=== PATIENT | female | born 1965 | race Caucasian/White ===

== ENCOUNTER → 2017-06-19 | Outpatient (CLI) | payer OTHER ==
[~2017-06-19] MED LIST: AUGMENTIN 875875 MG PO; HYDROCODONE-AP1 EAC6 PO; HYDROCODONE-APA1 TA1 PO; IBUPROFEN 800800 M1 PO; NAPROSYN500 MG PO
[2017-06-19 15:03] LABS: ABSOLUTE BASOPHILS 0.1 thou/uL (0.0-0.2); ABSOLUTE EOSINOPHILS 0.2 thou/uL (0.0-0.7); ABSOLUTE LYMPHOCYTES 1.3 thou/uL (0.8-5.3); ABSOLUTE MONOCYTES 0.3 thou/uL (0.0-1.2); ABSOLUTE NEUTROPHILS 4.8 thou/uL (1.6-8.1); BASOPHILS 0.8 %; EOSINOPHILS 3.5 %; HEMATOCRIT 41.9 % (37.0-47.0); HEMOGLOBIN 13.9 gm/dL (12.0-15.0); LYMPHOCYTES 19.7 %; MCH 28.1 pg (26.0-34.0); MCHC 33.1 g/dL (28.0-37.0); MCV 84.9 fL (80.0-100.0); MONOCYTES 5.1 %; MPV 8.8 fl. (7.2-11.1); NUCLEATED RBCS 0 /100WBC; PLATELET COUNT* 300 thou/uL (150-400); POLYS 70.9 %; RBC 4.93 mil/uL (4.20-5.00); WBC 6.7 thou/uL (4.0-11.0)
[2017-06-19 15:13] LABS: ALBUMIN 4.1 g/dL (3.4-5.0); ALKALINE PHOSPHATASE 95 U/L (46-116); ANION GAP 7 mmol/L (7-16); BUN 14 mg/dL (7-18); CALCIUM 9.1 mg/dL (8.5-10.1); CHLORIDE 104 mmol/L (98-107); CHOLESTEROL 222 mg/dL (<200); CO2 31 mmol/L (21-32); CREATININE 0.7 mg/dL (0.6-1.3); GLUCOSE 97 mg/dL (70-99); HDL CHOLESTEROL 79 mg/dL (>40); LDL CHOLESTEROL 128 mg/dL (<100); POTASSIUM 3.6 mmol/L (3.5-5.1); SERUM ASSESSMENT Clear; SGOT 24 U/L (15-37); SGPT 33 U/L (30-65); SODIUM 142 mmol/L (136-145); TC:HDL 2.8 Ratio (Not establshd); TOTAL BILIRUBIN 0.4 mg/dL (<0.1-1.0); TOTAL PROTEIN 7.9 g/dL (6.4-8.2); TRIGLYCERIDE 77 mg/dL (<150); VLDL 15 mg/dL (<40)
[2017-06-20 02:08] LABS: GLYCOHEMOGLOBIN (HGB A1C) 5.2 % (4.8-5.6)
== END ==
LOC: M.RAD 14:34
DX: Z01.419 Encounter for gynecological examination (general) (routine) without abnormal findings (principal); M25.559 Pain in unspecified hip

== ENCOUNTER → 2018-07-09 | Outpatient (CLI) | payer OTHER | LOC: M.RAD 07-08 10:00 | DX: Z12.31 Encounter for screening mammogram for malignant neoplasm of breast (principal) ==

== ENCOUNTER 2018-09-04 11:41 | Emergency (ER) | payer OTHER ==
[~2018-09-04] VITALS: Ht 152.4 cm; Wt 81.7 kg
[2018-09-04 12:11] LABS: ABSOLUTE BASOPHILS 0.1 thou/uL (0.0-0.2); ABSOLUTE EOSINOPHILS 0.2 thou/uL (0.0-0.7); ABSOLUTE LYMPHOCYTES 1.4 thou/uL (0.8-5.3); ABSOLUTE MONOCYTES 0.4 thou/uL (0.0-1.2); ABSOLUTE NEUTROPHILS 5.8 thou/uL (1.6-8.1); EOSINOPHILS 2.4 %; HEMATOCRIT 40.9 % (37.0-47.0); HEMOGLOBIN 13.5 gm/dL (12.0-15.0); LYMPHOCYTES 17.2 %; MCH 26.9 pg (26.0-34.0); MCHC 32.9 g/dL (28.0-37.0); MCV 81.9 fL (80.0-100.0); MONOCYTES 5.7 %; MPV 8.6 fl. (7.2-11.1); NUCLEATED RBCS 0 /100WBC; PLATELET COUNT* 362 thou/uL (150-400); POLYS 73.7 %; RDW-CV 14.9 % (10.5-14.5); WBC 7.9 thou/uL (4.0-11.0)
[2018-09-04 12:24] LABS: ANION GAP 9 mmol/L (7-16); BUN 15 mg/dL (7-18); CALCIUM 9.2 mg/dL (8.5-10.1); CHLORIDE 105 mmol/L (98-107); CO2 29 mmol/L (21-32); GLUCOSE 127 mg/dL (70-99); POTASSIUM 3.9 mmol/L (3.5-5.1); SODIUM 143 mmol/L (136-145)
[2018-09-04 12:33] LABS: ALBUMIN 3.7 g/dL (3.4-5.0); ALKALINE PHOSPHATASE 86 U/L (46-116); SGOT 24 U/L (15-37); SGPT 33 U/L (30-65); TOTAL BILIRUBIN 0.3 mg/dL (<0.1-1.0); TOTAL PROTEIN 7.1 g/dL (6.4-8.2); TROPONIN-I LEVEL <0.06 ng/mL (<0.06)
[2018-09-04 15:29] VITALS: BP 126/69
--- NOTE | 2018-09-04 15:39 | EKG ---
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 : 1965 Requested By: Nayla Lawler Order Number: [id number] MD: Michele Moseley Measurements Intervals [place] Rate: 77 P: 39 SC: 133 QRS: -27 QRSD: 100 T: 45 QT: 370 QTc: 419 Interpretive Statements Sinus rhythm Borderline left axis deviation Baseline wander in lead(s) I,III,aVR,aVL,aVF,V1 Compared to ECG 12/19/2016 00:30:20 Sinus tachycardia no longer present incomplete Right bundle-branch block no longer present Electronically Signed On 09-04-2018 15:39:40 CDT by Michele Moseley [email or web address] <ELECTRONICALLY SIGNED> By: Michele Moseley MD, [facility] 09/04/18 1539 1222 1222 Michele Moseley MD, [facility] /EPI
== END 2018-09-04 15:30 | disposition home or self-care (01) ==
LOC: M.ERS 11:41
PROVIDERS: Nurse Practitioner Family
DX: R20.2 Paresthesia of skin (principal); R06.00 Dyspnea, unspecified

== ENCOUNTER → 2019-09-10 | Outpatient (CLI) | payer OTHER ==
[2019-09-10 14:43] LABS: ABSOLUTE BASOPHILS 0.1 thou/uL (0.0-0.2); ABSOLUTE EOSINOPHILS 0.2 thou/uL (0.0-0.7); ABSOLUTE LYMPHOCYTES 1.4 thou/uL (0.8-5.3); ABSOLUTE MONOCYTES 0.5 thou/uL (0.0-1.2); ABSOLUTE NEUTROPHILS 5.1 thou/uL (1.6-8.1); BASOPHILS 0.9 %; EOSINOPHILS 2.9 %; HEMATOCRIT 37.8 % (37.0-47.0); HEMOGLOBIN 12.4 gm/dL (12.0-15.0); LYMPHOCYTES 19.1 %; MCH 25.4 pg (26.0-34.0); MCHC 32.9 g/dL (28.0-37.0); MCV 77.3 fL (80.0-100.0); MONOCYTES 6.6 %; MPV 8.5 fl. (7.2-11.1); NUCLEATED RBCS 0 /100WBC; PLATELET COUNT* 349 thou/uL (150-400); POLYS 70.5 %; RBC 4.89 mil/uL (4.20-5.00); RDW-CV 16.7 % (10.5-14.5); WBC 7.3 thou/uL (4.0-11.0)
[2019-09-10 14:56] LABS: ALBUMIN 3.8 g/dL (3.4-5.0); ALKALINE PHOSPHATASE 79 U/L (46-116); ANION GAP 6 mmol/L (7-16); BUN 18 mg/dL (7-18); CHLORIDE 104 mmol/L (98-107); CHOLESTEROL 198 mg/dL (<200); CO2 30 mmol/L (21-32); CREATININE 0.9 mg/dL (0.6-1.3); GLUCOSE 109 mg/dL (70-99); HDL CHOLESTEROL 74 mg/dL (>40); LDL CHOLESTEROL 110 mg/dL (<100); POTASSIUM 3.8 mmol/L (3.5-5.1); SGOT 21 U/L (15-37); SGPT 25 U/L (30-65); SODIUM 140 mmol/L (136-145); TC:HDL 2.7 Ratio (Not establshd); TOTAL BILIRUBIN 0.3 mg/dL (<0.1-1.0); TOTAL PROTEIN 7.4 g/dL (6.4-8.2); TRIGLYCERIDE 71 mg/dL (<150); VLDL 14 mg/dL (<40)
[2019-09-10 15:04] LABS: SERUM ASSESSMENT Clear
== END ==
LOC: M.LAB 14:20
PROVIDERS: Family Medicine
DX: Z13.220 Encounter for screening for lipoid disorders (principal); R07.89 Other chest pain

== ENCOUNTER 2019-10-07 13:25 | Emergency (ER) | payer OTHER ==
[~2019-10-07] VITALS: Ht 152.4 cm; Wt 79.8 kg
[2019-10-07] MEDS ORDERED: TOPROL XL25 MG PO (13:38)
[2019-10-07 14:26] LABS: ABSOLUTE BASOPHILS 0.1 thou/uL (0.0-0.2); ABSOLUTE EOSINOPHILS 0.1 thou/uL (0.0-0.7); ABSOLUTE LYMPHOCYTES 0.9 thou/uL (0.8-5.3); ABSOLUTE MONOCYTES 0.4 thou/uL (0.0-1.2); ABSOLUTE NEUTROPHILS 5.6 thou/uL (1.6-8.1); HEMATOCRIT 39.6 % (37.0-47.0); LYMPHOCYTES 12.2 %; MCH 26.1 pg (26.0-34.0); MCHC 32.7 g/dL (28.0-37.0); MCV 79.7 fL (80.0-100.0); MONOCYTES 5.7 %; MPV 8.7 fl. (7.2-11.1); NUCLEATED RBCS 0 /100WBC; PLATELET COUNT* 315 thou/uL (150-400); POLYS 79.1 %; RBC 4.97 mil/uL (4.20-5.00); RDW-CV 18.5 % (10.5-14.5); WBC 7.1 thou/uL (4.0-11.0)
[2019-10-07 14:34] LABS: CALCIUM 8.7 mg/dL (8.5-10.1); CREATININE 0.9 mg/dL (0.6-1.3); POTASSIUM 3.7 mmol/L (3.5-5.1)
[2019-10-07 14:38] LABS: URINE BILIRUBIN NEGATIVE (Negative); URINE BLOOD NEGATIVE (Negative); URINE CLARITY CLEAR; URINE COLOR YELLOW; URINE GLUCOSE-RANDOM NEGATIVE (Negative); URINE KETONES NEGATIVE (Negative); URINE LEUKOCYTES-REFLEX NEGATIVE (Negative); URINE NITRITE-REFLEX NEGATIVE (Negative); URINE PROTEIN NEGATIVE (Negative); URINE UROBILINOGEN 0.2 E.U./dl (0.2-1.0)
[2019-10-07 14:39] LABS: ALBUMIN 3.8 g/dL (3.4-5.0); TOTAL BILIRUBIN 0.3 mg/dL (<0.1-1.0); TOTAL PROTEIN 7.4 g/dL (6.4-8.2)
[2019-10-07] MEDS ORDERED: NORCO 5-325 TA1 EAC1 PO (15:29)
[2019-10-07 15:44] VITALS: BP 157/74
--- NOTE | 2019-10-08 14:16 | EKG ---
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: : 1965 Requested By: Joseluis Walls Order Number: [id number] MD: Michele Moseley Measurements Intervals [place] Rate: 79 P: 28 [place]: 136 QRS: -22 QRSD: 101 T: 55 QT: 354 QTc: 406 Interpretive Statements Sinus rhythm Probable left atrial enlargement Borderline left axis deviation Low voltage, precordial leads Compared to ECG 09/04/2018 12:22:16 Low QRS voltage now present Electronically Signed On 10-08-2019 14:15:00 CDT by Michele Moseley [email or web address] <ELECTRONICALLY SIGNED> By: Michele Moseley MD, [facility] 10/08/19 1415 1429 1429 Michele Moseley MD, [facility] /EPI
== END 2019-10-07 15:45 | disposition home or self-care (01) ==
LOC: M.ERS 13:25
PROVIDERS: Physician Assistant
DX: M79.605 Pain in left leg (principal); M79.602 Pain in left arm

== ENCOUNTER → 2020-05-26 | Outpatient (CLI) | payer OTHER ==
[~2020-05-26] MED LIST changes: +NORCO 5-325 TA1 EAC1 PO; +TOPROL XL25 MG PO
== END ==
LOC: M.RAD 13:25
PROVIDERS: ATTEND Family Medicine
DX: Z12.31 Encounter for screening mammogram for malignant neoplasm of breast (principal); N64.89 Other specified disorders of breast

== ENCOUNTER → 2020-06-01 | Outpatient (CLI) | payer OTHER ==
[2020-06-01 13:57] LABS: ABSOLUTE BASOPHILS 0.1 thou/uL (0.0-0.2); ABSOLUTE EOSINOPHILS 0.2 thou/uL (0.0-0.7); ABSOLUTE LYMPHOCYTES 1.5 thou/uL (0.8-5.3); ABSOLUTE MONOCYTES 0.4 thou/uL (0.0-1.2); ABSOLUTE NEUTROPHILS 3.4 thou/uL (1.6-8.1); BASOPHILS 0.9 %; EOSINOPHILS 3.6 %; HEMATOCRIT 40.3 % (37.0-47.0); HEMOGLOBIN 13.1 gm/dL (12.0-15.0); LYMPHOCYTES 27.5 %; MCH 26.2 pg (26.0-34.0); MCHC 32.5 g/dL (28.0-37.0); MCV 80.6 fL (80.0-100.0); MONOCYTES 6.6 %; MPV 8.6 fl. (7.2-11.1); NUCLEATED RBCS 0 /100WBC; PLATELET COUNT* 315 thou/uL (150-400); POLYS 61.4 %; RDW-CV 15.3 % (10.5-14.5); WBC 5.6 thou/uL (4.0-11.0)
[2020-06-01 14:09] LABS: ALBUMIN 4.1 g/dL (3.4-5.0); CALCIUM 9.3 mg/dL (8.5-10.1); CREATININE 0.7 mg/dL (0.6-1.3); POTASSIUM 3.5 mmol/L (3.5-5.1); TOTAL BILIRUBIN 0.2 mg/dL (<0.1-1.0); TOTAL PROTEIN 7.6 g/dL (6.4-8.2)
[2020-06-02 02:06] LABS: GLYCOHEMOGLOBIN (HGB A1C) 5.8 % (4.8-5.6)
== END ==
LOC: M.LAB 13:12
PROVIDERS: ATTEND Family Medicine
DX: E78.00 Pure hypercholesterolemia, unspecified (principal); R73.9 Hyperglycemia, unspecified; R42 Dizziness and giddiness; I10 Essential (primary) hypertension

== ENCOUNTER → 2020-08-02 | Outpatient (CLI) | payer OTHER | LOC: M.LAB 12:06 | PROVIDERS: ATTEND Internal Medicine Gastroenterology | DX: Z01.812 Encounter for preprocedural laboratory examination (principal); Z20.822 Contact with and (suspected) exposure to COVID-19 ==

== ENCOUNTER 2020-11-16 15:05 | Emergency (ER) | payer OTHER ==
[~2020-11-16] VITALS: Ht 154.9 cm; Wt 78.0 kg
[2020-11-16] MEDS ORDERED: MAGIC MOUTHWASH SWISH&SPIT (17:20)
[2020-11-16] MEDS ORDERED: MEDROLDOSEPACK PO (17:20)
[2020-11-16 17:36] VITALS: BP 160/95
== END 2020-11-16 17:36 | disposition home or self-care (01) ==
LOC: M.ERS 15:05
DX: K12.30 Oral mucositis (ulcerative), unspecified (principal); L25.9 Unspecified contact dermatitis, unspecified cause

== ENCOUNTER → 2021-02-07 | Outpatient (CLI) | payer OTHER ==
[~2021-02-07] MED LIST changes: +MAGIC MOUTHWASH SWISH&SPIT; +MEDROLDOSEPACK PO
[2021-02-07 10:56] LABS: ABSOLUTE EOSINOPHILS 0.2 thou/uL (0.0-0.7); ABSOLUTE LYMPHOCYTES 0.9 thou/uL (0.8-5.3); ABSOLUTE MONOCYTES 0.3 thou/uL (0.0-1.2); ABSOLUTE NEUTROPHILS 2.4 thou/uL (1.6-8.1); BASOPHILS 1.3 %; EOSINOPHILS 4.6 %; HEMATOCRIT 44.2 % (37.0-47.0); HEMOGLOBIN 14.7 gm/dL (12.0-15.0); LYMPHOCYTES 23.5 %; MCH 28.6 pg (26.0-34.0); MCHC 33.1 g/dL (28.0-37.0); MCV 86.4 fL (80.0-100.0); MONOCYTES 8.5 %; MPV 9.2 fl. (7.2-11.1); NUCLEATED RBCS 0 /100WBC; PLATELET COUNT* 312 thou/uL (150-400); POLYS 62.1 %; RBC 5.12 mil/uL (4.20-5.00); RDW-CV 15.8 % (10.5-14.5); WBC 3.9 thou/uL (4.0-11.0)
[2021-02-07 11:01] LABS: URINE BILIRUBIN NEGATIVE (Negative); URINE BLOOD NEGATIVE (Negative); URINE CLARITY CLEAR; URINE COLOR YELLOW; URINE GLUCOSE-RANDOM NEGATIVE (Negative); URINE KETONES NEGATIVE (Negative); URINE LEUKOCYTES 1+ (Negative); URINE NITRITE NEGATIVE (Negative); URINE PROTEIN NEGATIVE (Negative); URINE SPECIFIC GRAVITY 1.025 (1.005-1.030); URINE UROBILINOGEN 0.2 E.U./dl (0.2-1.0)
[2021-02-07 11:11] LABS: ALBUMIN 4.6 g/dL (3.4-5.0); CALCIUM 9.6 mg/dL (8.5-10.1); CREATININE 0.9 mg/dL (0.6-1.3); POTASSIUM 4.1 mmol/L (3.5-5.1); TOTAL BILIRUBIN 0.4 mg/dL (<0.1-1.0); TOTAL PROTEIN 8.5 g/dL (6.4-8.2)
[2021-02-07 11:48] LABS: BACTERIA 1-9 Few /HPF (None Seen); SQUAMOUS 4-10 Moderate /LPF (0-3); URINE RBC None Seen /HPF (0-2)
[2021-02-07 11:49] LABS: CASTS None Seen /LPF (None Seen); CRYSTALS None Seen /LPF (None Seen); MUCUS None Seen strn/LPF (None Seen); YEAST Present (None Seen)
[2021-02-08 02:06] LABS: GLYCOHEMOGLOBIN (HGB A1C) 5.5 % (4.8-5.6)
== END ==
LOC: M.LAB 10:31
PROVIDERS: ATTEND Family Medicine
DX: R30.0 Dysuria (principal); I10 Essential (primary) hypertension; E78.00 Pure hypercholesterolemia, unspecified; R73.9 Hyperglycemia, unspecified; R94.6 Abnormal results of thyroid function studies